=== PATIENT | male | born 1990 | race Caucasian/White ===

== ENCOUNTER 2021-02-02 09:49 | Emergency (ER) | payer BC, SELFPAY ==
[2021-02-02 10:19] VITALS: BP 109/73; PULSE 87; RESP 14; TEMP 36.9; O2SAT 95; BMI 27.4
--- NOTE | 2021-02-02 11:10 | W.ED.NAVMDI ---
HPI - Nausea/Vomiting/Diarrhea General: Chief complaint: Abdominal Pain Stated complaint: Abdominal Pain, Diarrhea Time Seen by Provider: 02/02/21 09:54 Source: patient Mode of arrival: ambulatory Limitations: no limitations History of Present Illness: HPI Narrative: Patient is a 30-year-old male who presents to ED today with a main complaint of abdominal pain and diarrhea. Patient tells me about 72 hours ago he began having body aches and chills. He states that then progressed to diffuse abdominal cramping and diarrhea. Patient tells me he had approximately 30 watery diarrhea stools yesterday. He has been treating with OTC antidiarrhea medicine. 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 He states most of their symptoms lasted approximately 48 hours and then subsided. He is still complaining of chills and body aches. No reported fevers. He is endorsing some nasal congestion. Denies loss of taste or smell. He is unvaccinated for COVID. He has not had any episodes of vomiting but reportedly does feel nauseous. Denies recent antibiotic use. No other new medication use. MD elicited complaint: nausea, diarrhea and abdominal pain Description of diarrhea: watery Associated nausea: Yes Associated abdominal pain: Yes Location of pain: Diffuse Radiation: diffuse Pain consistency: constant Severity: mild Quality: cramping Relieving factors: none Associated symtoms: Reports nausea; Denies bloating, change in vision, chest pain, dizziness, dysuria, headache(s) or palpitations Treatment prior to arrival: immodium Review of Systems Const: Reports: chills and body aches; Denies: fever(s) Eyes: Denies: change in vision or blurry vision ENMT: Reports: nasal discharge and nasal congestion; Denies: throat pain, odynophagia or post nasal drip Card: Denies: chest pain or palpitations Resp: Denies: dyspnea, productive cough, non-productive cough, wheezing, pain on inspiration, hemoptysis or chest congestion GI: Reports: abdominal pain, nausea and diarrhea; Denies: vomiting, early satiety, constipation, bloating, belching, hematochezia, melena or white/light colored stool : Denies: flank pain, difficulty urinating, dysuria or hematuria Musc: Denies: neck pain, back pain, extremity pain or joint pain Skin/Breast: Denies: rash Neuro: Denies: headache(s), weakness in extremities, difficulty walking or dizziness Physical Exam Const: COMMON NORMALS: no acute distress, average body habitus, patient oriented x3, no limitations, healthy appearing, alert and well nourished GENERAL APPEARANCE: cooperative ORIENTATION/CONSCIOUSNESS: Yes awake, Yes oriented to person, Yes oriented to place and Yes oriented to time HENMT: COMMON NORMALS: normocephalic and atraumatic HEAD & SCALP: normocephalic and atraumatic Neck/C-Spine: COMMON NORMALS: full ROM, no lymphadenopathy and no meningeal signs Resp: COMMON NORMALS: normal respiratory effort and clear to auscultation bilaterally AUSCULTATION: clear to auscultation bilaterally Cardio: COMMON NORMALS: regular rate and regular rhythm RATE: regular rate RHYTHM: regular rhythm GI: COMMON NORMALS: Normal to inspection, nondistended, normoactive bowel sounds present, Soft to palpation, No hepatosplenomegaly present and no masses INSPECTION: Yes normal to inspection AUSCULTATION: Yes normoactive bowel sounds PALPATION: Yes Soft to palpation, Yes Tenderness to palpation present (GI) (generalized-non surgical exam), No Guarding due to palpation present (GI), No Rigid due to palpation and Yes No hepatosplenomegaly present : COMMON NORMALS: Yes no CVA tenderness BLADDER/KIDNEY EXAM: Yes no CVA tenderness Back/Pelvis: COMMON NORMALS: no CVA tenderness Extremity: COMMON NORMALS: normal to inspection Neuro: COMMON NORMALS: patient oriented x3 SENSORIUM/ORIENTATION: Yes alert, Yes oriented to person, Yes oriented to place and Yes oriented to time MENINGEAL SIGNS: Yes no meningeal signs Skin: COMMON NORMALS: no rashes or lesions noted GENERAL SKIN EXAM: no rashes or lesions noted TRAUMA: no lacerations or abrasions Course Vital Signs: Vital signs: Vital Signs Temperature 98.5 F 02/02/21 10:19 Pulse Rate 67 02/02/21 11:45 Respiratory Rate 16 02/02/21 11:45 Blood Pressure 115/67 02/02/21 11:45 Pulse Oximetry 96 02/02/21 11:45 MDM - Nausea/Vomiting/Diarrhea MDM Narrative: Medical decision making narrative: Patient clinically is nonill and nontoxic appearing. His vital signs are normal. Labs are non-concerning at this time and do not show any evidence of severe dehydration. Rapid COVID is negative. Abdominal exam is nonsurgical. CT imaging is not indicated today. Given the fact that other individuals and children were sick with similar symptoms most likely this is secondary to a viral gastroenteritis. Discussed how these are self-limited. Recommended conservative therapy at home. Return to ED precautions given. Lab Data: Labs: Lab Results 02/02/21 02/02/21 02/02/21 11:48 11:48 12:50 WBC 4.2 10^3/uL 10^3/ uL (4.0-10.0) RBC 5.16 10^6/uL 10^6 /uL (4.1-5.3) Hgb 15.5 g/dL g/dL (11.7-16.6) Hct 47.1 % % (42.0-52.0) MCV 91.3 fl fl (80-94) MCH 30.0 pg pg (28.0-34.0) MCHC 32.9 g/dL g/dL (30.0-36.0) RDW 11.8 % L % (12.1-15.1) Plt Count 210 10^3/cmm 10^3 /cmm (130-400) MPV 10.6 fL H fL (7.4-10.4) Neut % (Auto) 50.8 % % Lymph % (Auto) 27.1 % % [place] % (Auto) 17.1 % % Eos % (Auto) 3.8 % % Baso % (Auto) 0.7 % % Neut # (Auto) 2.13 10^3/uL 10^3 /uL (1.8-7.7) Lymph # (Auto) 1.1 10^3/uL 10^3/ uL (0.8-4.8) [place] # (Auto) 0.7 10^3/uL 10^3/ uL (0.2-0.9) Eos # (Auto) 0.2 10^3/uL 10^3/ uL (0.0-0.8) Baso # (Auto) 0.0 10^3/uL 10^3/ uL (0.0-0.1) Nucleated RBC % (a uto) 0 % % Nucleated RBCs # 0.0 /100WBC /100W BC Sodium 137 mmol/L mmol/L (136-145) Potassium 3.7 mmol/L mmol/L (3.5-5.1) Chloride 101 mmol/L mmol/L (98-107) Carbon Dioxide 26 mmol/L mmol/L (22-29) Anion Gap 13.7 (5-19) BUN 12 mg/dL mg/dL (6-20) Creatinine 0.8 mg/dL mg/dL (0.7-1.2) GFR Calculation 112.8 mL/min mL/m in (90-130) Glucose 82 mg/dL mg/dL (65-115) Calculated Osmolal ity 283 mOsm/kg L mOs m/kg (285-295) Calcium 8.6 mg/dL mg/dL (8.5-10.5) Total Bilirubin 0.2 mg/dL mg/dL (0.15-1.2) AST 37 U/L U/L (0-40) ALT 37 U/L U/L (0-41) Alkaline Phosphata se 77 IU/L IU/L (40-130) Total Protein 6.8 g/dL g/dL (6.6-8.7) Albumin 4.1 g/dL g/dL (3.5-5.2) Globulin 2.7 g/dL g/dL (1.3-4.6) Lipase 27 U/L U/L (13-60) Urine Color Urine Appearance Urine pH Ur Specific Gravit y Urine Protein Urine Glucose (UA) Urine Ketones Urine Blood Urine Nitrate Urine Bilirubin Urine Urobilinogen Ur Leukocyte Yulisa ase SARS-CoV-2 Ag (Rap id) Negative (Negative) 02/02/21 12:50 WBC RBC Hgb Hct MCV MCH MCHC RDW Plt Count MPV Neut % (Auto) Lymph % (Auto) [place] % (Auto) Eos % (Auto) Baso % (Auto) Neut # (Auto) Lymph # (Auto) [place] # (Auto) Eos # (Auto) Baso # (Auto) Nucleated RBC % (a uto) Nucleated RBCs # Sodium Potassium Chloride Carbon Dioxide Anion Gap BUN Creatinine GFR Calculation Glucose Calculated Osmolal ity Calcium Total Bilirubin AST ALT Alkaline Phosphata se Total Protein Albumin Globulin Lipase Urine Color Yellow (Yellow) Urine Appearance Clear (CLEAR) Urine pH 5 (5-7) Ur Specific Gravit y 1.025 (1.005-1.030) Urine Protein Neg (Negative) Urine Glucose (UA) Norm (Normal) Urine Ketones Negative (Negative) Urine Blood Neg (Negative) Urine Nitrate Negative (Negative) Urine Bilirubin 1+ H (Negative) Urine Urobilinogen 1 mg/dL H mg/dL (Negative) Ur Leukocyte Yulisa ase Negative (Negative) SARS-CoV-2 Ag (Rap id) Discharge Plan Discharge Patient Disposition: Home Clinical Impression: Gastroenteritis Condition: Stable Discharge Orders: Discharge ED (Routine); Ordered 02/02/21 Ordered By: Tiffanie Squires Patient Instructions: Gastroenteritis (ED) Coding Level of Care Code ED Ballast Cleaning Operator for Shashi Fwd Exam Comprehensive
[2021-02-02 11:45] VITALS: BP 115/67; PULSE 67; RESP 16; O2SAT 96
[2021-02-02] MEDS: sodium chloride 0.9% 1,000 ML 999 ML IV (11:52)
[2021-02-02 12:00] LABS: Basophils % 0.7 %; Eosinophils # 0.2 10^3/uL (0.0-0.8); Eosinophils % 3.8 %; Hematocrit 47.1 % (42.0-52.0); Hemoglobin 15.5 g/dL (11.7-16.6); Lymphocytes # 1.1 10^3/uL (0.8-4.8); Lymphocytes % 27.1 %; Mean Corpuscular HGB Conc 32.9 g/dL (30.0-36.0); Mean Corpuscular Volume 91.3 fl (80-94); Mean Platelet Volume 10.6 fL (7.4-10.4); Monocytes # 0.7 10^3/uL (0.2-0.9); Monocytes % 17.1 %; Neutrophils # 2.13 10^3/uL (1.8-7.7); Neutrophils % 50.8 %; Nucleated Red Blood Cells % 0 %; Platelet Count 210 10^3/cmm (130-400); Red Blood Count 5.16 10^6/uL (4.1-5.3); Red Cell Distribution Width 11.8 % (12.1-15.1); White Blood Count 4.2 10^3/uL (4.0-10.0)
[2021-02-02 12:22] LABS: Alanine Aminotransferase 37 U/L (0-41); Albumin Level 4.1 g/dL (3.5-5.2); Alkaline Phosphatase 77 IU/L (40-130); Anion Gap 13.7 (5-19); Aspartate Amino Transferase 37 U/L (0-40); Blood Urea Nitrogen 12 mg/dL (6-20); Calcium 8.6 mg/dL (8.5-10.5); Carbon Dioxide 26 mmol/L (22-29); Chloride 101 mmol/L (98-107); Globulin 2.7 g/dL (1.3-4.6); Glomerular Filtration Rate 112.8 mL/min (90-130); Glucose 82 mg/dL (65-115); Lipase 27 U/L (13-60); Osmolality Calculated 283 mOsm/kg (285-295); Potassium 3.7 mmol/L (3.5-5.1); Sodium 137 mmol/L (136-145); Total Bilirubin 0.2 mg/dL (0.15-1.2); Total Protein 6.8 g/dL (6.6-8.7)
[2021-02-02 12:57] LABS: Add Urine Microscopic? NO; Charge for UA Resulting for Rev
[2021-02-02 13:01] LABS: Bilirubin Urine 1+ (Negative); Blood Urine Neg (Negative); Glucose Urine UA Norm (Normal); Ketones Urine Negative (Negative); Leukocyte Esterase Urine Negative (Negative); Nitrate Urine Negative (Negative); Protein Urine Neg (Negative); Specific Gravity, Urine 1.025 (1.005-1.030); Urine Appearance Clear (CLEAR); Urine Color Yellow (Yellow); Urobilinogen Urine 1 mg/dL (Negative); pH Urine 5 (5-7)
[2021-02-02 13:18] LABS: SARS Covid-2 Antigen Negative (Negative)
[2021-02-02 13:42] VITALS: BP 130/64; PULSE 92; O2SAT 96
== END 2021-02-02 13:44 | disposition home or self-care (01) ==
PROVIDERS: Emergency Provider Physician Assistant
DX: K52.9 Noninfective gastroenteritis and colitis, unspecified (principal); Z20.822 Contact with and (suspected) exposure to COVID-19
CPT/HCPCS: 80053; 81003; 83690; 85025; 87426; 96360; 99284; J7030

== ENCOUNTER → 2022-11-21 10:50 | Outpatient (BNVA) | payer OTHER, SELFPAY | PROVIDERS: Visit Provider Podiatrist Foot & Ankle Surgery | DX: M72.2 Plantar fascial fibromatosis (principal); M25.371 Other instability, right ankle | CPT/HCPCS: 73630 ==

== ENCOUNTER → 2024-01-30 08:45 | Outpatient (BNVA) | payer SELFPAY | PROVIDERS: PCP Nurse Practitioner Family; Visit Provider Nurse Practitioner | DX: S82.034A Nondisplaced transverse fracture of right patella, initial encounter for closed fracture (principal); S82.454A Nondisplaced comminuted fracture of shaft of right fibula, initial encounter for closed fracture; S92.425A Nondisplaced fracture of distal phalanx of left great toe, initial encounter for closed fracture; X58.XXXA Exposure to other specified factors, initial encounter; M79.671 Pain in right foot | CPT/HCPCS: 73562; 73590; 73630 ==

== ENCOUNTER 2024-01-30 11:57 | Outpatient (CLI) | payer SELFPAY | END 2024-01-30 11:58 | disposition home or self-care (01) | LOC: SPT 11:59 | PROVIDERS: PCP Nurse Practitioner Family; Visit Provider Nurse Practitioner | DX: Z46.89 Encounter for fitting and adjustment of other specified devices (principal); S89.91XS Unspecified injury of right lower leg, sequela; S92.902S Unspecified fracture of left foot, sequela; X58.XXXS Exposure to other specified factors, sequela | CPT/HCPCS: L1832; L4361 ==

== ENCOUNTER → 2024-02-10 11:15 | Outpatient (BNVA) | payer OTHER, SELFPAY | PROVIDERS: PCP Nurse Practitioner Family; Visit Provider Podiatrist Foot & Ankle Surgery | DX: S92.425A Nondisplaced fracture of distal phalanx of left great toe, initial encounter for closed fracture (principal); S82.451A Displaced comminuted fracture of shaft of right fibula, initial encounter for closed fracture; S92.325A Nondisplaced fracture of second metatarsal bone, left foot, initial encounter for closed fracture; V89.2XXA Person injured in unspecified motor-vehicle accident, traffic, initial encounter | CPT/HCPCS: 73610; 73630 ==

== ENCOUNTER 2024-02-13 06:25 | Day surgery (SDC) | payer OTHER, SELFPAY ==
[2024-02-13] VITALS (12 sets, daily range): BP systolic 82–129; BP diastolic 41–107; PULSE 68–86; RESP 11–20; TEMP 36.2–36.6; O2SAT 92–98; BMI 27.8
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
[2024-02-13] MEDS: sodium chloride 0.9% 1,000 ML 30 ML IV (06:30)
[2024-02-13] MEDS: gabapentin 300 mg Capsule PO (06:58)
[2024-02-13] MEDS: CELEcoxib 200 mg Capsule 400 MG PO (06:58)
--- NOTE | 2024-02-13 07:40 | ANES.PROC ---
Anesthesia Procedures Procedure/Date: 02/13/24 Nerve Block ^: Nerve Block 1: Main Anesthesia: other (100mcg fentanyl and 2mg versed) Time Out Performed: Yes Consent: requested by attending/covering physician and from patient Nerve block location: popliteal Anesthesia monitors applied: pulse oximetry, EKG, BP cuff and oxygen Nerve block position: supine Anesthetic Used: ropivicaine 0.5% Amount of anesthesia used (mL): 30 Ultrasound used to: recognize landmarks Nerve Stimulator Used?: Yes Interscalene/Femoral BLK: 4 stimuplex 21 g needle used for position and inplane approach and visualize local anesthetic spread Injection: neg aspiration of heme Patient Tolerated Procedure: well Complications: none
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
--- NOTE | 2024-02-13 07:45 | SUR.PREOP ---
Sciatic block done on patient using 30ml of 0.5% rupivicaine. patient tolerated well.
--- NOTE | 2024-02-13 07:56 | P.HPUD_ITS ---
Surgery/Procedure H&P Update DATE OF PROCEDURE: February 13, 2024 DATE H&P PERFORMED: 02/10/24 H&P UPDATE INFORMATION: I have reviewed H&P completed within last 30 days, I have examined patient prior to procedure, No changes to prior documentation and H&P is in [facility] EMR on date indicated PREOP DIAGNOSIS: Right fibular fracture PLANNED PROCEDURE: Operation Date: 02/13/24 08:10 Proposed Procedures p ORIF Ankle ORIF Fibula(Right) - Korey Pack DPM
[2024-02-13] MEDS: ceFAZolin 2,000 mg SDV 2000 MG IVP (08:13)
--- NOTE | 2024-02-13 09:38 | P.BOP_ITS ---
Date of Procedure: 07/25/23 Surgeon: Korey Pack DPM Technical Product Manager(s): Gaurav BROWN Procedure(s) performed: Open reduction internal fixation right fibular shaft fracture. Findings of the procedure(s): None Estimated blood loss: 5 mL Specimen(s) removed: No specimens removed Post-operative diagnosis: Right fibular fracture.
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
--- NOTE | 2024-02-13 11:03 | ANE.PACU2 ---
Inpatient post-anesthesia follow up: Airway intact: Yes Vital signs: Temperature 97.6 F Pulse Rate 68 Respiratory Rate 18 Blood Pressure 116/77 Pulse Oximetry 93 Oxygen Delivery Me thod Room Air Oxygen Flow Rate 6 Fraction of Inspir ed Oxygen Hydration adequate: Yes Nausea and vomiting: No Pain level: 1 Mental status: Baseline
== END 2024-02-13 11:03 | disposition home or self-care (01) ==
PROVIDERS: PCP Nurse Practitioner Family; Visit Provider Podiatrist Foot & Ankle Surgery
PROC: (CPT 27792; principal; 2024-02-13 08:00)
DX: S82.451A Displaced comminuted fracture of shaft of right fibula, initial encounter for closed fracture (principal); X58.XXXA Exposure to other specified factors, initial encounter; F17.210 Nicotine dependence, cigarettes, uncomplicated
CPT/HCPCS: 27792; 73590; 76000; C1713; J0690; J2250; J2704; J3010; J7030

== ENCOUNTER → 2024-02-18 07:58 | Outpatient (BNVA) | payer OTHER, SELFPAY | PROVIDERS: PCP Nurse Practitioner Family; Visit Provider Nurse Practitioner | DX: S82.034D Nondisplaced transverse fracture of right patella, subsequent encounter for closed fracture with routine healing; S92.425D Nondisplaced fracture of distal phalanx of left great toe, subsequent encounter for fracture with routine healing; S92.325D Nondisplaced fracture of second metatarsal bone, left foot, subsequent encounter for fracture with routine healing; S82.451D Displaced comminuted fracture of shaft of right fibula, subsequent encounter for closed fracture with routine healing; V89.2XXD Person injured in unspecified motor-vehicle accident, traffic, subsequent encounter | CPT/HCPCS: 73030; 73562; 73590; 73630; 73650 ==

== ENCOUNTER → 2024-02-26 14:25 | Outpatient (BNVA) | payer SELFPAY | PROVIDERS: PCP Nurse Practitioner Family; Visit Provider Podiatrist Foot & Ankle Surgery | DX: S82.451D Displaced comminuted fracture of shaft of right fibula, subsequent encounter for closed fracture with routine healing (principal); S92.325D Nondisplaced fracture of second metatarsal bone, left foot, subsequent encounter for fracture with routine healing; M25.572 Pain in left ankle and joints of left foot; Z98.890 Other specified postprocedural states; Z87.81 Personal history of (healed) traumatic fracture; S92.425D Nondisplaced fracture of distal phalanx of left great toe, subsequent encounter for fracture with routine healing; X58.XXXD Exposure to other specified factors, subsequent encounter | CPT/HCPCS: 73590; 73600; 73630 ==

== ENCOUNTER → 2024-03-01 09:04 | Outpatient (BNVA) | payer SELFPAY | PROVIDERS: PCP Nurse Practitioner Family; Visit Provider Nurse Practitioner | DX: S82.451D Displaced comminuted fracture of shaft of right fibula, subsequent encounter for closed fracture with routine healing (principal); Z98.890 Other specified postprocedural states; Z87.81 Personal history of (healed) traumatic fracture; S92.325D Nondisplaced fracture of second metatarsal bone, left foot, subsequent encounter for fracture with routine healing; S92.425D Nondisplaced fracture of distal phalanx of left great toe, subsequent encounter for fracture with routine healing; M25.572 Pain in left ankle and joints of left foot; S82.034D Nondisplaced transverse fracture of right patella, subsequent encounter for closed fracture with routine healing; V89.2XXD Person injured in unspecified motor-vehicle accident, traffic, subsequent encounter | CPT/HCPCS: 73562; 73630 ==

== ENCOUNTER → 2024-03-11 13:23 | Outpatient (BNVA) | payer SELFPAY | PROVIDERS: PCP Nurse Practitioner Family; Visit Provider Podiatrist Foot & Ankle Surgery | DX: S82.451D Displaced comminuted fracture of shaft of right fibula, subsequent encounter for closed fracture with routine healing (principal); S92.325D Nondisplaced fracture of second metatarsal bone, left foot, subsequent encounter for fracture with routine healing; S82.034D Nondisplaced transverse fracture of right patella, subsequent encounter for closed fracture with routine healing; S92.425D Nondisplaced fracture of distal phalanx of left great toe, subsequent encounter for fracture with routine healing; V89.2XXD Person injured in unspecified motor-vehicle accident, traffic, subsequent encounter | CPT/HCPCS: 73590; 73630 ==

== ENCOUNTER → 2024-03-22 10:29 | Outpatient (BNVA) | payer SELFPAY | PROVIDERS: PCP Nurse Practitioner Family; Visit Provider Nurse Practitioner | DX: S82.034D Nondisplaced transverse fracture of right patella, subsequent encounter for closed fracture with routine healing (principal); S92.325D Nondisplaced fracture of second metatarsal bone, left foot, subsequent encounter for fracture with routine healing; S82.451D Displaced comminuted fracture of shaft of right fibula, subsequent encounter for closed fracture with routine healing; S92.425D Nondisplaced fracture of distal phalanx of left great toe, subsequent encounter for fracture with routine healing; V89.2XXD Person injured in unspecified motor-vehicle accident, traffic, subsequent encounter | CPT/HCPCS: 73562; 73630 ==

== ENCOUNTER → 2024-03-25 14:11 | Outpatient (BNVA) | payer OTHER, SELFPAY | PROVIDERS: PCP Nurse Practitioner Family; Visit Provider Podiatrist Foot & Ankle Surgery | DX: S82.451D Displaced comminuted fracture of shaft of right fibula, subsequent encounter for closed fracture with routine healing (principal); S92.325D Nondisplaced fracture of second metatarsal bone, left foot, subsequent encounter for fracture with routine healing; S82.034D Nondisplaced transverse fracture of right patella, subsequent encounter for closed fracture with routine healing; S92.425D Nondisplaced fracture of distal phalanx of left great toe, subsequent encounter for fracture with routine healing; V89.2XXD Person injured in unspecified motor-vehicle accident, traffic, subsequent encounter | CPT/HCPCS: 73590; 73630 ==

== ENCOUNTER 2024-04-09 12:40 | Outpatient (CLI) | payer OTHER, SELFPAY ==
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
== END 2024-04-09 12:41 | disposition home or self-care (01) ==
LOC: RAD 12:40
PROVIDERS: PCP Nurse Practitioner Family; Visit Provider Nurse Practitioner
DX: M25.512 Pain in left shoulder (principal); V89.2XXD Person injured in unspecified motor-vehicle accident, traffic, subsequent encounter
CPT/HCPCS: 73221

== ENCOUNTER → 2024-04-12 09:14 | Outpatient (BNVA) | payer OTHER, SELFPAY | PROVIDERS: PCP Nurse Practitioner Family; Visit Provider Nurse Practitioner | DX: M25.512 Pain in left shoulder; S29.011A Strain of muscle and tendon of front wall of thorax, initial encounter; S82.034A Nondisplaced transverse fracture of right patella, initial encounter for closed fracture; M75.22 Bicipital tendinitis, left shoulder; X58.XXXA Exposure to other specified factors, initial encounter | CPT/HCPCS: 73590 ==

== ENCOUNTER → 2024-05-03 11:25 | Outpatient (BNVA) | payer SELFPAY | PROVIDERS: PCP Nurse Practitioner Family; Visit Provider Podiatrist Foot & Ankle Surgery | DX: S82.034D Nondisplaced transverse fracture of right patella, subsequent encounter for closed fracture with routine healing (principal); S82.451D Displaced comminuted fracture of shaft of right fibula, subsequent encounter for closed fracture with routine healing; X58.XXXD Exposure to other specified factors, subsequent encounter | CPT/HCPCS: 73590 ==

== ENCOUNTER → 2024-05-24 08:16 | Outpatient (BNVA) | payer SELFPAY | PROVIDERS: PCP Nurse Practitioner Family; Visit Provider Nurse Practitioner | DX: S82.451D Displaced comminuted fracture of shaft of right fibula, subsequent encounter for closed fracture with routine healing (principal); S83.206D Unspecified tear of unspecified meniscus, current injury, right knee, subsequent encounter; S29.011D Strain of muscle and tendon of front wall of thorax, subsequent encounter; S82.034D Nondisplaced transverse fracture of right patella, subsequent encounter for closed fracture with routine healing; M23.51 Chronic instability of knee, right knee; M25.512 Pain in left shoulder; X58.XXXD Exposure to other specified factors, subsequent encounter | CPT/HCPCS: 73560; 73565 ==

== ENCOUNTER 2024-06-28 15:33 | Outpatient (CLI) | payer OTHER, SELFPAY ==
--- NOTE | 2024-06-28 16:00 | MR_ITS ---
WS: [id number] MRI RIGHT KNEE NONCONTRAST TECHNIQUE: Axial PD, coronal PD fat sat, coronal PD, sagittal PD, and sagittal PD fat-sat images obtained. CLINICAL INFORMATION: fracture of shaft of right fibula FINDINGS: Distal quadriceps and patellar tendons are intact. Hypertrophic patella. Nondisplaced slightly irregular fracture involving the inferior pole of the patella. Recommend correlation with patella pain. ACL and PCL are intact. Grade 2-3 chondromalacia patella worse involving the lateral patella facet. Normal bone marrow signal in the femoral condyles and tibial plateau. The fibula head appears normal. Medial and lateral collateral ligaments appear intact. Normal popliteus. Slight peripheral extrusion of the medial meniscus. Normal popliteal fossa. Chronic intrasubstance signal abnormality involving the medial meniscus. No acute appearing meniscal tears. Chronic thinning of the medial lateral meniscus. Grade II chondromalacia medial and lateral joint compartments. MR/MR knee RT wo con* [id number] IMPRESSION: 1. Normal ACL and PCL. 2. Nondisplaced slightly irregular fracture involving the inferior pole of the patella with mild edema. Recommend correlation for patella pain. 3. Additional tiny fracture involving the superior pole of the patella but dif ficult to visualize due to slice thickness. This could be followed up with CT i f indicated. 4. Chronic thinning of the medial and lateral meniscus. Mild peripheral extrus ion of the medial meniscus with chronic intrasubstance signal abnormality. No a cute appearing meniscal tears. 5. Grade II-III chondromalacia medial and lateral joint compartments. 6. Moderate chondromalacia patella worse involving the lateral patella facet. 7. Medial and lateral collateral ligaments appear intact. 8. No other acute findings. Outbridge grading: grade III: partial-thickness cartilage loss with focal ulcer ation
== END 2024-06-28 15:34 | disposition home or self-care (01) ==
PROVIDERS: PCP Nurse Practitioner Family; Visit Provider Nurse Practitioner
DX: M23.51 Chronic instability of knee, right knee (principal); S83.206A Unspecified tear of unspecified meniscus, current injury, right knee, initial encounter; S82.401A Unspecified fracture of shaft of right fibula, initial encounter for closed fracture; S82.091A Other fracture of right patella, initial encounter for closed fracture; R93.6 Abnormal findings on diagnostic imaging of limbs; M94.261 Chondromalacia, right knee; X58.XXXA Exposure to other specified factors, initial encounter
CPT/HCPCS: 73721

== ENCOUNTER → 2024-07-05 13:42 | Outpatient (BNVA) | payer OTHER, SELFPAY | PROVIDERS: PCP Nurse Practitioner Family; Visit Provider Podiatrist Foot & Ankle Surgery | DX: S82.034D Nondisplaced transverse fracture of right patella, subsequent encounter for closed fracture with routine healing (principal); S82.451D Displaced comminuted fracture of shaft of right fibula, subsequent encounter for closed fracture with routine healing; S92.425D Nondisplaced fracture of distal phalanx of left great toe, subsequent encounter for fracture with routine healing; S92.325D Nondisplaced fracture of second metatarsal bone, left foot, subsequent encounter for fracture with routine healing; V89.2XXD Person injured in unspecified motor-vehicle accident, traffic, subsequent encounter | CPT/HCPCS: 73590 ==

== ENCOUNTER → 2024-07-16 12:45 | Outpatient (BNVA) | payer OTHER, SELFPAY | PROVIDERS: PCP Nurse Practitioner Family; Visit Provider Nurse Practitioner | DX: S82.034D Nondisplaced transverse fracture of right patella, subsequent encounter for closed fracture with routine healing (principal); M23.51 Chronic instability of knee, right knee; X58.XXXD Exposure to other specified factors, subsequent encounter; M25.512 Pain in left shoulder | CPT/HCPCS: 73560; 73565 ==